=== PATIENT | female | born 1995 | race Hispanic/Latino ===

== ENCOUNTER 2025-03-31 19:20 | Emergency (ER) | payer OTHER ==
[~2025-03-31] VITALS: Ht 152.4 cm; Wt 127.5 kg
--- NOTE | 2025-03-31 19:27 | NUR ---
UA CUP PROVIDED
[2025-03-31 19:45] LABS: IMMATURE GRANULOCYTE ABSOLUTE 0.02 K/uL (0-1); NUCLEATED RED BLOOD CELLS 0.0 % (0.0-0.19); PLATELET COUNT (AUTO) 322 K/uL (130-400); RED BLOOD CELL COUNT(AUTO) 5.05 MIL/uL (4.00-5.50); RED CELL DISTRIBUTION WIDTH 14.1 % (11.0-15.5); WHITE BLOOD COUNT (AUTO) 9.0 K/uL (4.8-10.8)
[2025-03-31 19:56] LABS: CREATININE 0.7 mg/dL (0.5-1.0); GLOMERULAR FILTR. RATE CALC 120.0 mL/min (>90); GLUCOSE,RANDOM 123.0 mg/dL (70-105); SODIUM SERUM 141.0 mmol/L (136-145); UREA NITROGEN, BLOOD 13.0 mg/dL (7-18)
[2025-03-31 20:07] LABS: CREATINE KINASE, TOTAL 71.0 U/L (21-232)
[2025-03-31 20:34] LABS: APPEARANCE,URINE CLEAR (CLEAR); GLUCOSE, URINE (UA) NEGATIVE (NEGATIVE); LEUKOCYTE ESTERASE ,URINE NEGATIVE Leu/uL (NEGATIVE); NITRATE,URINE NEGATIVE (NEGATIVE); OCCULT BLOOD,URINE NEGATIVE (NEGATIVE)
[2025-03-31 20:36] LABS: HCG,QUALITATIVE URINE NEGATIVE (NEGATIVE)
[2025-03-31 20:37] LABS: ADD UA MICROSCOPIC NO
--- NOTE | 2025-03-31 21:04 | HMCIMG ---
EXAM: CR Chest, 1 view CLINICAL HISTORY: Chest pain. COMPARISON: None provided. FINDINGS: The lungs show no infiltrates or other acute findings. No pleural effusion or pneumothorax. The cardiomediastinal silhouette is within normal limits. No acute osseous abnormality. IMPRESSION: No acute cardiopulmonary process is evident. /[place]
--- NOTE | 2025-03-31 21:27 | ERN ---
General Chief Complaint: Chest Pain Stated Complaint: DIZZINESS, NAUSEA Time Seen by MD: 19:22 Time Seen by Midlevel: 19:22 Source: patient History of Present Illness Initial Comments 29-year-old female presenting to the emergency department for evaluation of generalized chest pain. The patient states she has been having intermittent episodes of chest pain for the last year. She states that for the last several days that has been increasing in intensity. She has already been seen by water taxi driver and is pending results for for Holter monitor. She had an EKG scheduled for later this month. Otherwise patient has no other complaints. Allergies: Coded Allergies: No Known Allergies (Unverified Allergy, Unknown, 03/31/25) Past Medical History Past Medical History: No Pertinent History Past Surgical History: None Female( History) LMP: Mar 18, 2025 ROS Dictation CONSTITUTIONAL: Negative except for HPI HEAD/FACE: Negative except for HPI EENT: Negative except for HPI RESPIRATORY: Negative except for HPI GASTROINTESTINAL/ABDOMINAL: Negative except for HPI GENITOURINARY: Negative except for HPI MUSCULOSKELETAL: Negative except for HPI INTEGUMENTARY: Negative except for HPI NEUROLOGICAL/PSYCH: Negative except for HPI HEMATOLOGIC/LYMPHATIC: Negative except for HPI All Systems Negative, Except as noted above. 13 point review of systems assessed and all negative except for above. Physical Exam Physical Exam Dictation Vital Signs reviewed General Appearance: Alert, oriented x 3, no acute distress, well developed, nourished. Head and Face: non-traumatic. Eyes: PERRL, pink conjunctivas, eyelid no trauma, anterior chamber with arcus senilis. Ears: Pinnas intact and no signs of trauma or erythema ear canals clear and no discharge TM no erythema Nose: No discharge, no bleeding. Oropharynx: Mouth normal, tongue pink, pharynx clear,no erythema, tonsils no exudates, no abscesses noted, mucous membrane moist Neck: Supple, non-tender, no thyromegaly, no masses, no JVD, no bruits Breast:Deferred Chest:No tenderness, no crepitus, no paradoxical movement, no retractions Lungs:Clear, well-ventilated, symmetric, no rales, no wheezing, no rhonchi, no stridor, good breath sounds bilaterally Heart: Regular rate, regular rhythm, no murmur, no gallops Vascular: no peripheral edema, Abdomen: Soft, positive bowel sounds, nondistended, no guarding, nontender, no rebound, no masses no hepatomegaly, no splenomegaly, no Nunn's sign, no hernias. Rectal: Deferred Genital: Deferred Neurological: Normal speech, motor function intact, sensory function intact Musculoskeletal: Neck nontender, full range of motion, back nontender, full range of motion, Extremities: nontender, full range of motion Skin: Color pink, dry, no turgor, no rash, no lacerations, no abrasions, no contusions. Lymphatic: Deferred Results Laboratory and Microbiology Lab and Micro Result Laboratory Tests Test 03/31/25 19:36 03/31/25 20:16 White Blood Count 9.0 K/uL (4.8-10.8) Red Blood Count 5.05 MIL/uL (4.00-5.50) Hemoglobin 12.9 g/dL (12.0-16.0) Hematocrit 40.9 % (36-48) Mean Corpuscular Volume 81.0 fL (79-99) Mean Corpuscular Hemoglobin 25.5 pg (27.0-33.0) L Mean Corpuscular Hemoglobin Concent 31.5 g/dL (32.0-36.0) L Red Cell Distribution Width 14.1 % (11.0-15.5) Platelet Count 322 K/uL (130-400) Mean Platelet Volume 9.7 fL (7.5-10.5) Immature Granulocyte % (Auto) 0.2 % (0-1) Neutrophils (%) (Auto) 66.1 % (40.0-77.0) Lymphocytes (%) (Auto) 23.9 % (21.0-51.0) Monocytes (%) (Auto) 6.7 % (3.0-13.0) Eosinophils (%) (Auto) 2.9 % (0.0-8.0) Basophils (%) (Auto) 0.2 % (0.0-5.0) Neutrophils # (Auto) 6.0 K/uL (1.8-7.7) Lymphocytes # (Auto) 2.2 K/uL (1.0-4.8) Monocytes # (Auto) 0.6 K/uL (0.1-1.0) Eosinophils # (Auto) 0.26 K/uL (0.00-0.70) Basophils # (Auto) 0.02 K/uL (0.00-0.20) Absolute Immature Granulocyte (auto 0.02 K/uL (0-1) Nucleated Red Blood Cells 0.0 % (0.0-0.19) D-Dimer Quantitative (PE/DVT) 314 ng/mL (0-500) Sodium Level 141 mmol/L (136-145) Potassium Level 3.7 mmol/L (3.5-5.1) Chloride Level 104 mmol/L (101-111) Carbon Dioxide Level 27 mmol/L (21-32) Blood Urea Nitrogen 13 mg/dL (7-18) Creatinine 0.7 mg/dL (0.5-1.0) Glomerular Filtration Rate Calc 120 mL/min (>90) Random Glucose 123 mg/dL (70-105) H Total Calcium 8.7 mg/dL (8.5-10.1) Total Creatine Kinase 71 U/L (21-232) Troponin I High Sensitivity < 4 ng/L (4-50) L Urine Color COLORLESS (YELLOW) Urine Appearance CLEAR (CLEAR) Urine pH 7.0 (5.0-8.0) Urine Specific [place] 1.009 (1.001-1.031) Urine Protein NEGATIVE mg/dL (NEGATIVE) Urine Glucose (UA) NEGATIVE mg/dL (NEGATIVE) Urine Ketones NEGATIVE mg/dL (NEGATIVE) Urine Occult Blood NEGATIVE (NEGATIVE) Urine Nitrate NEGATIVE (NEGATIVE) Urine Bilirubin NEGATIVE mg/dL (NEGATIVE) Urine Urobilinogen 0.2 mg/dL (0.2-1.0) Urine Leukocyte Esterase NEGATIVE [place]/uL Urine HCG, Qualitative NEGATIVE (NEGATIVE) Labs Reviewed?: Yes MDM MDM: Differential diagnosis: Acute coronary syndrome, electrolyte abnormality, dehydration There are no social concerns with this patient. Prescription drug management Prescriptions will include: None Medical management and examination interpretation discussions were had by me with other qualified healthcare professionals as indicated for the patient's care. ED Course Orders Procedure Category Date Status Time Vital Signs Per CPOE 03/31/25 Transmitted Routine 19:23 Chest 1vw RAD 03/31/25 Resulted 19:23 12 Lead Ekg Tracing- EKG 03/31/25 Logged Technical 19:23 Oxygen By Nc/Pulse Ox CPOE 03/31/25 Transmitted 19:23 Maintain Iv CPOE 03/31/25 Transmitted 19:23 Iv Insertion CPOE 03/31/25 Transmitted 19:23 Cardiac Monitoring CPOE 03/31/25 Transmitted 19:23 Pulse Oximetry With CPOE 03/31/25 Transmitted Vs And Prn 19:23 Cbc With Differential LAB 03/31/25 Complete 19:23 Activity: Br W/Brp CPOE 03/31/25 Transmitted With Assist 19:23 Creatine Kinase, Total LAB 03/31/25 Complete 19:23 Troponin I High LAB 03/31/25 Complete Sensitivity 19:23 Urinalysis Profile LAB 03/31/25 Complete 19:23 Basic Metabolic Panel LAB 03/31/25 Complete 19:23 ,Urine Test LAB 03/31/25 Complete 19:23 D-Dimer LAB 03/31/25 Complete 19:30 Vital Signs Date Time Temp Pulse Resp B/P (MAP) Pulse Ox O2 Delivery O2 Flow Rate FiO2 03/31/25 21:35 98.2 75 18 102/71 98 Room Air* 0 21 03/31/25 19:22 98.4 88 20 170/64 100 Room Air HEART Score Response (Comments) Value History: Low suspicion (0) 0 EKG: Normal 0 Age: < 45yrs (0) 0 Risk Factors: No known risk factors (0) 0 Initial Troponin: Normal limit (0) 0 HEART Score Risk: Low Risk for MACE (1-3) Total 0 DX & DISP Disposition: Discharge Departure Impression: Primary Impression: Non-cardiac chest pain Condition: Stable Additional Instructions: Your blood work today is unremarkable. Your white blood cell count is normal. There are no signs of systemic infection. There was no evidence of anemia. Your hemoglobin was normal at 12.9. Your electrolytes are all normal. Your kidney function is normal. Your troponin level was normal. This test measures if your heart is under any sort of stress. Your EKG is normal and does not show any evidence of a heart attack. Your urinalysis does not show any evidence of infection. Your chest x-ray shows no acute cardiopulmonary process. You will need to follow up with your primary care doctor and water taxi driver outpatient for further evaluation. Referrals: SELF,REFERRAL (PCP) I have reviewed the case, and I agree with, Diagnosis and Plan I performed the substantive portion of the visit. I have reviewed and personally made and approve the management plan that is documented in the note by myself or the CHRIS. I acknowledge for responsibility for the patient's management plan. MARCUS JACOB PAC Mar 31, 2025 21:26
[2025-03-31 21:35] VITALS: BP 102/71; PULSE 75; RESP 18; TEMP 98.2; O2SAT 98
--- NOTE | 2025-03-31 22:03 | EKG ---
[facility] Test Date: 2025-03-31 Test Time: 19:20:53 Pat Name: JOVANNI HARRIS Department: [facility] Room: Gender: F Manager Care Management: [birth year] : 1995 Requested By: MARCUS JACOB Order Number: [id number] Reading MD: Marcelo Bergeron Measurements Intervals [place] Rate: 90 P: 36 WI: 167 QRS: 18 QRSD: 95 T: 23 QT: 374 QTc: 459 Interpretive Statements Sinus rhythm No previous ECG available for comparison Electronically Signed On 04-02-2025 16:06:43 CDT by Marcelo Bergeron Please click the below link to view image of tracing.
== END 2025-03-31 21:36 | disposition home or self-care (01) ==
LOC: EDH 19:20
DX: R07.89 Other chest pain (principal)
CPT/HCPCS: 36415; 71045; 80048; 81003; 81025; 82550; 84484; 85025; 85378; 93005; 99285